=== PATIENT | male | born 1970 | race American Indian/Alaskan Native ===

== ENCOUNTER 2016-12-11 12:50 | Emergency (ER) | payer OTHER ==
[2016-12-11 12:55] VITALS: BMI 36.5
[2016-12-11 12:57] VITALS: BP 136/92; PULSE 81; RESP 20; TEMP 98.2; O2SAT 97
--- NOTE | 2016-12-11 13:44 | ED PDOC ---
HPI: General Adult Time Seen by Provider: 12/11/16 13:09 Chief Complaint (Nursing): Abdominal Pain Chief Complaint (Provider): abdominal pain History Per: Patient History/Exam Limitations: no limitations Additional Complaint(s): 46yo male comes to the ED complaining of abdominal pain since this waking up this morning. States sudden onset, non-radiating, in the middle of the abdomen. No nausea, vomit, urinary symptoms, diarrhea, constipation. No shoulder pain, back pain. No Hx hernia. States it became worse while lifting something at work. Last bowel movement was this morning. Pain is worse with movement. Past Medical History Reviewed: Historical Data, Nursing Documentation, Vital Signs Vital Signs: Last Vital Signs Temp 98.2 F 12/11/16 12:55 Pulse 81 12/11/16 12:55 Resp 20 12/11/16 12:55 BP 136/92 H 12/11/16 12:55 Pulse Ox 97 12/11/16 13:53 - Medical History PMH: HTN (no meds x years) Denies: Alzheimer's Disease, Anemia, Anxiety, Arthritis, Asthma, Bipolar Disorder, Bronchitis, COPD, Crohn's Disease, Dementia, Depression, Diverticulitis, Emphysema, Fractures, Gastritis, Gall Bladder Disease, HIV, Hyperthyroidism, Hypothyroidism, Kidney Stones, Migraine, Multiple Sclerosis, Osteoporosis, Pancreatitis, Paranoia, Parkinson's Disease, Pneumonia, Post Traumatic Stress Disorder, Pulmonary Embolism, Chronic Kidney Disease, Rheumatoid Arthritis, Schizophrenia, Seizures, Sickle Cell Disease, Sexually Transmitted Disease, Sleep Apnea, TIA - Surgical History Surgical History: No Surg Hx - Family History Family History: States: No Known Family Hx - Living Arrangements Living Arrangements: With Family - Social History Current smoker - smoking cessation education provided: No Alcohol: < 2 Drinks/Day - Home Medications Home Medications: Ambulatory Orders Medication Instructions Recorded Aspirin [Aspirin Chewable] 81 mg PO DAILY #0 chew 10/12/14 Atorvastatin [Lipitor] 10 mg PO HS #0 tab 10/12/14 Enalapril Maleate [Vasotec] 5 mg PO DAILY #0 tab 10/12/14 Amoxicillin/Clavulanate [Augmentin 1 tab PO BID #20 tab 10/28/15 875 MG-125 MG] Enalapril Maleate [Vasotec] 5 mg PO DAILY #5 tab 10/28/15 Naproxen [Naprosyn Tab] 500 mg PO BID PRN #20 tab 10/28/15 Amoxicillin/Potassium Clav 1 tab PO TID #30 tab 08/12/16 [Augmentin 500 mg-125 mg] amLODIPine [Norvasc] 5 mg PO DAILY #30 tab 08/12/16 - Allergies Allergies/Adverse Reactions: Allergies Allergy/AdvReac Type Severity Reaction Status Date / Time tomato AdvReac URTICARIA Verified 12/11/16 12:59 Review of Systems ROS Statement: Except As Marked, All Systems Reviewed And Found Negative Constitutional: Negative for: Fever Gastrointestinal: Positive for: Abdominal Pain. Negative for: Nausea, Vomiting , Diarrhea, Constipation Genitourinary Male: Negative for: Dysuria, Frequency Musculoskeletal: Negative for: Back Pain Physical Exam - Reviewed Nursing Documentation Reviewed: Yes Vital Signs Reviewed: Yes - Physical Exam Appears: Positive for: Well, Non-toxic, No Acute Distress Head Exam: Positive for: ATRAUMATIC, NORMAL INSPECTION, NORMOCEPHALIC Skin: Positive for: Warm, Dry Eye Exam: Positive for: EOMI, PERRL Cardiovascular/Chest: Positive for: Regular Rate, Rhythm Respiratory: Positive for: Normal Breath Sounds. Negative for: Rales, Rhonchi, Wheezing Gastrointestinal/Abdominal: Positive for: Bowel Sounds (decreased bowel sounds in all 4 quadrants. ), Soft, Tenderness (left periumbilical tenderness but no tenderness to percussion), Distended - Laboratory Results Result Diagrams: 12/11/16 14:10 12/11/16 14:10 - ECG O2 Sat by Pulse Oximetry: 97 (RA) Pulse Ox Interpretation: Normal - Progress Re-evaluation Time: 18:52 (no furhter pain/tenderness) Condition: Re-examined, Improved Medical Decision Making Medical Decision Makin: XR Obstructive Series, CT abd/pel w/ contrast, Labs, EKG ordered. Disposition - Clinical Impression Clinical Impression: Abdominal pain - Patient ED Disposition Is Patient to be Admitted: No Doctor Will See Patient In The: Office Counseled Patient/Family Regarding: Diagnosis - Disposition Referrals: Galen Araujo MD [Family Provider] - Disposition: Routine/Home Disposition Time: 18:51 Condition: IMPROVED Instructions: Acute Abdominal Pain (ED) Forms: [facility] ED School/Work Excuse - POA Present On Arrival: None Additional Comments - Additional Comments Additional Comments: Scribe Attestation: Documented by Niko Cao acting as a scribe for Polly Allen MD. Provider Scribe Attestation: All medical record entries made by the Scribe were at my direction and personally dictated by me. I have reviewed the chart and agree that the record accurately reflects my personal performance of the history, physical exam, medical decision making, and the department course for this patient. I have also personally directed, reviewed, and agree with the discharge instructions and disposition.
[2016-12-11 14:17] LABS: BASO % 0.4 % (0.0-2.0); EOS % 0.5 % (0.0-4.0); HEMATOCRIT 42.8 % (35.0-51.0); LYMPH % 27.6 % (20.0-40.0); MEAN CORPUSCULAR HEMOGLOBIN 33.1 pg (27.0-31.0); MEAN CORPUSCULAR HGB CONC 32.7 g/dL (33.0-37.0); MEAN PLATELET VOLUME 8.4 fl (7.2-11.7); MONO # 0.6 K/uL (0.0-0.8); MONO % 8.3 % (0.0-10.0); NEUT # 4.6 K/uL (1.8-7.0); NEUT % 63.2 % (50.0-75.0); NRBC % 0.1 % (0.0-0.0); RED CELL DISTRIBUTION WIDTH 14.5 % (11.5-14.5); WHITE BLOOD COUNT 7.3 K/uL (4.8-10.8)
[2016-12-11 14:25] LABS: RBC URINE 6 /hpf (0-3); URINE BACTERIA RARE (<OCC); URINE BILIRUBIN NEGATIVE (NEGATIVE); URINE BLOOD NEGATIVE (NEGATIVE); URINE COLOR YELLOW (YELLOW); URINE GLUCOSE (UA) NEG (Normal); URINE KETONE NEGATIVE (NEGATIVE); URINE LEUKOCYTE ESTERASE NEG Leu/uL (Negative); URINE PROTEIN 30 mg/dL (NEGATIVE); URINE UROBILINOGEN 0.2-1.0 mg/dL (0.2-1.0); WBC URINE 1 /hpf (0-5)
[2016-12-11 14:28] LABS: ALKALINE PHOSPHATASE 78 U/L (38-126); ALT/SGPT 32 U/L (21-72); AST/SGOT 32 U/L (17-59); BILIRUBIN,TOTAL 0.4 mg/dl (0.2-1.3); BLOOD UREA NITROGEN 13 mg/dl (9-20); CALCIUM 9.6 mg/dL (8.4-10.2); CARBON DIOXIDE 27 mmol/L (22-30); CHLORIDE 104 mmol/L (98-107); GFR AFRICAN-AMERICAN > 60; GLUCOSE,RANDOM 87 mg/dL (75-110); LIPASE 78 U/L (23-300); POTASSIUM 4.3 MMOL/L (3.6-5.0); SODIUM 141 mmol/l (132-148); TOTAL PROTEIN 8.9 G/DL (6.3-8.2)
--- NOTE | 2016-12-11 14:52 | RAD ---
PROCEDURE: Chest abdominal series dated 12/11/2016 HISTORY: periumbilical pain COMPARISON: Comparison made with prior chest radiograph dated 10/11/2014 TECHNIQUE: AP radiograph of the chest, with upright and supine radiographs of the abdomen. FINDINGS: CHEST: Heart appears mildly enlarged. Lung buck clear without focal consolidation or effusion. No apparent pneumothorax. Probable healed fracture deformity right clavicle. ABDOMEN AND PELVIS: No evidence of free intraperitoneal air seen under the diaphragmatic surfaces. Nonobstructive/nonspecific bowel gas pattern is present. IMPRESSION: Cardiomegaly. No evidence of acute mechanical bowel obstruction. No gross free intraperitoneal air. See above discussion for additional incidental findings.
[2016-12-11] MEDS ORDERED: Iohexol 240 (50 ml) ONE (15:08)
[2016-12-11] MEDS: Iohexol 240 (50 ml) PO ONE (15:16)
[2016-12-11] MEDS ORDERED: Sodium Chloride 0.9% 50 ML IV ONE (16:41)
[2016-12-11] MEDS ORDERED: Iohexol 300 100 ML IJ ONE (16:41)
--- NOTE | 2016-12-11 18:37 | CT ---
PROCEDURE: CT Abdomen and Pelvis with contrast HISTORY: periumbilical pain COMPARISON: None. TECHNIQUE: Contrast dose: 100 cc Visipaque 320. Radiation dose: Total exam DLP = 1178.99 mGy-cm. This CT exam was performed using one or more of the following dose reduction techniques: Automated exposure control, adjustment of the mA and/or kV according to patient size, and/or use of iterative reconstruction technique. FINDINGS: LOWER THORAX: Unremarkable. LIVER: Hepatic steatosis. No focal masses. No intrahepatic bile duct dilatation or perihepatic ascites. GALLBLADDER AND BILE DUCTS: Unremarkable. PANCREAS: Unremarkable. No gross lesion or ductal dilatation. SPLEEN: Unremarkable. ADRENALS: Unremarkable. No mass. KIDNEYS AND URETERS: Unremarkable. No hydronephrosis. No solid mass. VASCULATURE: Unremarkable. No aortic aneurysm. BOWEL: Unremarkable. No obstruction. No gross mural thickening. Diverticulosis without an acute inflammatory component or other associated pathologic process. APPENDIX: Normal appendix. PERITONEUM: Unremarkable. No free fluid. No free air. LYMPH NODES: Unremarkable. No enlarged lymph nodes. BLADDER: Unremarkable. REPRODUCTIVE: Unremarkable. BONES: No acute fracture. OTHER FINDINGS: None. IMPRESSION: No acute findings related to/accounting for the clinical presentation. Additional benign and/or incidental findings described above.
--- NOTE | 2016-12-13 18:58 | CARD ---
APPROVED REPORT EKG Measurement Heart [id number] <Conclusion> Normal sinus rhythm with sinus arrhythmia Nonspecific T wave abnormality Abnormal ECG
== END 2016-12-11 19:01 | disposition home or self-care (01) ==
LOC: H.ER 12:50
DX: R10.33 Periumbilical pain (principal); I10 Essential (primary) hypertension; Z79.82 Long term (current) use of aspirin

== ENCOUNTER 2018-02-10 21:09 | Observation (INO) | payer OTHER ==
[2018-02-10 21:10] VITALS: BMI 36.5
--- NOTE | 2018-02-10 21:39 | ED PDOC ---
HPI: Chest Pain Time Seen by Provider: 02/10/18 21:26 Chief Complaint (Nursing): Chest Pain Chief Complaint (Provider): chest pain History Per: Patient History/Exam Limitations: no limitations Onset/Duration Of Symptoms: Hrs (5) Current Symptoms Are (Timing): Still Present Additional Complaint(s): 48 y/o male history of hypertension (noncompliant) presents for evaluation of chest pain x 5 hours. Patient states symptoms started in left upper arm, then radiated to left jaw and to left side of chest. Associated shortness of breath. Denies fever, headache, dizziness, nausea/vomiting, palpitations, leg pain/swelling, recent travel. PMD: Dr. Galen Araujo Past Medical History Reviewed: Historical Data, Nursing Documentation, Vital Signs Vital Signs: Last Vital Signs Temp 98.2 F 02/10/18 21:15 Pulse 81 02/10/18 21:39 Resp 19 02/10/18 21:39 BP 143/78 02/10/18 21:39 Pulse Ox 96 02/10/18 21:40 - Medical History PMH: HTN (no meds x years) Denies: Alzheimer's Disease, Anemia, Anxiety, Arthritis, Asthma, Bipolar Disorder, Bronchitis, COPD, Crohn's Disease, Dementia, Depression, Diverticulitis, Emphysema, Fractures, Gastritis, Gall Bladder Disease, HIV, Hyperthyroidism, Hypothyroidism, Kidney Stones, Migraine, Multiple Sclerosis, Osteoporosis, Pancreatitis, Paranoia, Parkinson's Disease, Pneumonia, Post Traumatic Stress Disorder, Pulmonary Embolism, Chronic Kidney Disease, Rheumatoid Arthritis, Schizophrenia, Seizures, Sickle Cell Disease, Sexually Transmitted Disease, Sleep Apnea, TIA - Surgical History Surgical History: No Surg Hx - Family History Family History: States: Unknown Family Hx - Living Arrangements Living Arrangements: With Family - Social History Current smoker - smoking cessation education provided: No Alcohol: Occasional Drugs: Denies - Home Medications Home Medications: Ambulatory Orders Medication Instructions Recorded Aspirin [Aspirin Chewable] 81 mg PO DAILY #0 chew 10/12/14 Atorvastatin [Lipitor] 10 mg PO HS #0 tab 10/12/14 Enalapril Maleate [Vasotec] 5 mg PO DAILY #0 tab 10/12/14 Amoxicillin/Clavulanate [Augmentin 1 tab PO BID #20 tab 10/28/15 875 MG-125 MG] Enalapril Maleate [Vasotec] 5 mg PO DAILY #5 tab 10/28/15 Naproxen [Naprosyn Tab] 500 mg PO BID PRN #20 tab 10/28/15 Amoxicillin/Potassium Clav 1 tab PO TID #30 tab 08/12/16 [Augmentin 500 mg-125 mg] amLODIPine [Norvasc] 5 mg PO DAILY #30 tab 08/12/16 - Allergies Allergies/Adverse Reactions: Allergies Allergy/AdvReac Type Severity Reaction Status Date / Time tomato AdvReac URTICARIA Verified 12/11/16 12:59 Review of Systems ROS Statement: Except As Marked, All Systems Reviewed And Found Negative Cardiovascular: Positive for: Chest Pain Respiratory: Positive for: Shortness of Breath Physical Exam - Reviewed Nursing Documentation Reviewed: Yes Vital Signs Reviewed: Yes - Physical Exam Appears: Positive for: Well, Non-toxic, No Acute Distress Head Exam: Positive for: ATRAUMATIC, NORMAL INSPECTION, NORMOCEPHALIC Skin: Positive for: Normal Color Eye Exam: Positive for: Normal appearance ENT: Positive for: Normal ENT Inspection Cardiovascular/Chest: Positive for: Regular Rate, Rhythm Respiratory: Positive for: Normal Breath Sounds Gastrointestinal/Abdominal: Positive for: Normal Exam Back: Positive for: Normal Inspection Extremity: Positive for: Normal ROM Neurologic/Psych: Positive for: Alert, Oriented (x3) - Laboratory Results Result Diagrams: 02/10/18 22:10 02/10/18 22:10 - ECG ECG: Positive for: Viewed By Me (reviewed by ED attending) ECG Rhythm: Positive for: Sinus Rhythm O2 Sat by Pulse Oximetry: 96 - Radiology X-Ray: Viewed By Me X-Ray Interpretation: No Acute Disease - Progress ED Course And Treament: labs, ekg, chest xray Case discussed with Dr. Araujo for placement in telemetry obs for chest pain to r/out ACS ASA dose ordered Disposition - Clinical Impression Clinical Impression: Chest pain - Disposition Disposition Time: 23:13 Condition: FAIR
[2018-02-10 22:24] LABS: BASO # 0.1 K/uL (0.0-0.2); EOS % 0.5 % (0.0-4.0); HEMOGLOBIN 13.3 g/dL (12.0-18.0); LYMPH # 2.3 K/uL (1.0-4.3); MEAN CELL VOLUME 100.9 fl (80.0-94.0); MEAN CORPUSCULAR HEMOGLOBIN 33.7 pg (27.0-31.0); MEAN CORPUSCULAR HGB CONC 33.4 g/dL (33.0-37.0); MEAN PLATELET VOLUME 8.4 fl (7.2-11.7); MONO # 0.6 K/uL (0.0-0.8); MONO % 7.2 % (0.0-10.0); NEUT # 5.4 K/uL (1.8-7.0); NEUT % 64.3 % (50.0-75.0); RBC 3.93 Mil/uL (4.40-5.90); RED CELL DISTRIBUTION WIDTH 14.3 % (11.5-14.5); WHITE BLOOD COUNT 8.5 K/uL (4.8-10.8)
[2018-02-10 22:34] LABS: CALCIUM 9.6 mg/dL (8.4-10.2); GFR AFRICAN-AMERICAN > 60; GFR NON-AFRICAN AMERICAN > 60
[2018-02-10 22:42] LABS: ALBUMIN 4.2 g/dL (3.5-5.0); ALT/SGPT 22 U/L (21-72); AST/SGOT 41 U/L (17-59); BLOOD UREA NITROGEN 11 mg/dl (9-20)
[2018-02-10 22:46] LABS: B-TYPE NATRIURETIC PEPTIDE 28.9 pg/ml (0-450)
[2018-02-11 06:20] LABS: HDL CHOLESTEROL 36 MG/DL (30-70)
[2018-02-11 06:31] LABS: LDL CHOLESTEROL 131 mg/dL (0-129)
[2018-02-11 07:51] VITALS: RESP 16
[2018-02-11] MEDS ORDERED: Enoxaparin 40 mg Syringe SC SCH (09:00)
--- NOTE | 2018-02-11 09:05 | RAD ---
Date of service: 02/10/2018 HISTORY: chest pain COMPARISON: Portable chest 10/11/2014. TECHNIQUE: Chest PA and lateral FINDINGS: LUNGS: No active pulmonary disease. PLEURA: No significant pleural effusion identified. No pneumothorax apparent. CARDIOVASCULAR: Normal. OSSEOUS STRUCTURES: No significant abnormalities. VISUALIZED UPPER ABDOMEN: Normal. OTHER FINDINGS: None. IMPRESSION: No interval acute cardiopulmonary disease appreciated.
--- NOTE | 2018-02-11 10:24 | CP.PCM.HP ---
History of Present Illness - History of Present Illness History of Present Illness: 48 YR OLD MALE ADMITTED VIA THE ER BECAUSE OF CHEST PAINS RADIATING TO THE L ARM X SEVERAL DAYS[WORSE ON THE DAY OF ADMISSION].PAIN RESOLVED WHILE IN THE ER. THE PT HAS A HISTORY OF HYPERTENSION AND HAS NOT TAKEN HIS BP MEDS FOR YRS.HE HAS ALSO NOT KEPT HIS OFFICE APPOINTMENTS X YRS. FAMILY HX-BOTH PARENTS ARE HYPERTENSIVE Present on Admission - Present on Admission Any Indicators Present on Admission: Yes Past Patient History - Infectious Disease Hx of Infectious Diseases: None - Past Social History Alcohol: Occasional Drugs: Denies - CARDIAC Hx Hypertension: Yes (no meds x years) - PULMONARY Hx Asthma: No Hx Bronchitis: No Hx Chronic Obstructive Pulmonary Disease (COPD): No Hx Emphysema: No Hx Pneumonia: No Hx Pulmonary Embolism: No Hx Sleep Apnea: No - NEUROLOGICAL Hx Alzheimer's Disease: No Hx Dementia: No Hx Migraine: No Hx Multiple Sclerosis: No Hx Parkinson's Disease: No Hx Seizures: No Hx Transient Ischemic Attacks (TIA): No - HEENT Hx HEENT Problems: No Hx Blind: No Hx Cataracts: No Hx Deafness: No Hx Difficulty Chewing: No Hx Epistaxis: No Hx Glaucoma: No Hx Macular Degeneration: No - RENAL Hx Chronic Kidney Disease: No Hx Kidney Stones: No - ENDOCRINE/METABOLIC Hx Hyperthyroidism: No Hx Hypothyroidism: No - HEMATOLOGICAL/ONCOLOGICAL Hx Anemia: No Hx Human Immunodeficiency Virus (HIV): No Hx Sickle Cell Disease: No - INTEGUMENTARY Hx Dermatological Problems: No Hx Basil Cell: No Hx Lee: No Hx Cellulitis: No Hx Eczema: No Hx Melanoma: No Hx Psoriasis: No Hx Squamous Cell: No - MUSCULOSKELETAL/RHEUMATOLOGICAL Hx Arthritis: No Hx Fractures: No Hx Osteoporosis: No Hx Rheumatoid Arthritis: No - GASTROINTESTINAL Hx Crohn's Disease: No Hx Diverticulitis: No Hx Gall Bladder Disease: No Hx Gastritis: No Hx Pancreatitis: No - GENITOURINARY/GYNECOLOGICAL Hx Sexually Transmitted Disorders: No - PSYCHIATRIC Hx Anxiety: No Hx Bipolar Disorder: No Hx Depression: No Hx Paranoia: No Hx Post Traumatic Stress Disorder: No Hx Schizophrenia: No - SURGICAL HISTORY Hx Surgeries: No - ANESTHESIA Hx Anesthesia: No Meds Allergies/Adverse Reactions: Allergies Allergy/AdvReac Type Severity Reaction Status Date / Time tomato AdvReac URTICARIA Verified 12/11/16 12:59 Physical Exam - Constitutional Appears: Well - Head Exam Head Exam: ATRAUMATIC, NORMAL INSPECTION, NORMOCEPHALIC - Eye Exam Eye Exam: EOMI, Normal appearance, PERRL Pupil Exam: NORMAL ACCOMODATION, PERRL - ENT Exam ENT Exam: Mucous Membranes Moist, Normal Exam - Neck Exam Neck exam: Positive for: Normal Inspection - Respiratory Exam Respiratory Exam: Clear to Auscultation Bilateral, NORMAL BREATHING PATTERN - Cardiovascular Exam Cardiovascular Exam: REGULAR RHYTHM - GI/Abdominal Exam GI & Abdominal Exam: Normal Bowel Sounds, Soft. absent: Tenderness - Rectal Exam Rectal Exam: NORMAL INSPECTION - Extremities Exam Extremities exam: Positive for: normal inspection - Back Exam Back exam: NORMAL INSPECTION - Neurological Exam Neurological exam: Alert, CN II-XII Intact, Normal Gait, Oriented x3, Reflexes Normal - Psychiatric Exam Psychiatric exam: Normal Affect, Normal Mood - Skin Skin Exam: Dry, Intact, Normal Color, Warm Results - Vital Signs Recent Vital Signs: Last Vital Signs Temp 97.8 F 02/11/18 05:25 Pulse 72 02/11/18 09:00 Resp 16 02/11/18 07:51 BP 134/78 02/11/18 09:00 Pulse Ox 98 02/11/18 07:51 - Labs Result Diagrams: 02/10/18 22:10 02/10/18 22:10 Labs: Laboratory Results - last 24 hr 02/10/18 02/10/18 02/11/18 22:10 22:10 05:30 WBC 8.5 RBC 3.93 L Hgb 13.3 Hct 39.7 MCV 100.9 H MCH 33.7 H MCHC 33.4 RDW 14.3 Plt Count 259 MPV 8.4 Neut % (Auto) 64.3 Lymph % (Auto) 27.0 Miner % (Auto) 7.2 Eos % (Auto) 0.5 Baso % (Auto) 1.0 Neut # (Auto) 5.4 Lymph # (Auto) 2.3 Miner # (Auto) 0.6 Eos # (Auto) 0.0 Baso # (Auto) 0.1 Sodium 142 Potassium 4.4 Chloride 103 Carbon Dioxide 29 Anion Gap 14 BUN 11 Creatinine 0.9 Est GFR ( Amer) > 60 Est GFR (Non-Af Amer) > 60 Random Glucose 91 Calcium 9.6 Total Bilirubin 0.8 AST 41 ALT 22 Alkaline Phosphatase 77 Troponin I < 0.0120 < 0.0120 NT-Pro-B Natriuret Pep 28.9 Total Protein 8.6 H Albumin 4.2 Globulin 4.4 H Albumin/Globulin Ratio 1.0 Triglycerides 121 D Cholesterol 207 H LDL Cholesterol Direct 131 H HDL Cholesterol 36 Assessment & Plan - Assessment and Plan (Free Text) Assessment: CHEST PAIN UNCONTROLLED HYPERTENSION NON-COMPLIANCE TO MEDS AND DIET HYPERLIPIDEMIA Plan: CLEARED FOR DISCHARGE BY [facility]--DR WONG PT TO FOLLOW UP WITH DR PUENTE OUT PT IN 1 WEEK FOR FURTHER WORKUP COMPLIANCE ADVISED - Date & Time Date: 02/11/18 Time: 10:27
--- NOTE | 2018-02-11 10:29 | CP.PCM.DIS ---
Provider - Provider Date of Admission: 02/10/18 23:07 Attending physician: Galen Puente MD Time Spent in preparation of Discharge (in minutes): 30 Diagnosis - Discharge Diagnosis (1) Non-compliance Status: Acute (2) Hyperlipidemia Status: Acute (3) Chest pain Status: Acute (4) Hypertension Status: Acute Hospital Course - Lab Results Lab Results: Most Recent Lab Values WBC 8.5 K/uL (4.8-10.8) 02/10/18 22:10 RBC 3.93 Mil/uL (4.40-5.90) L 02/10/18 22:10 Hgb 13.3 g/dL (12.0-18.0) 02/10/18 22:10 Hct 39.7 % (35.0-51.0) 02/10/18 22:10 MCV 100.9 fl (80.0-94.0) H 02/10/18 22:10 MCH 33.7 pg (27.0-31.0) H 02/10/18 22:10 MCHC 33.4 g/dL (33.0-37.0) 02/10/18 22:10 RDW 14.3 % (11.5-14.5) 02/10/18 22:10 Plt Count 259 K/uL (130-400) 02/10/18 22:10 MPV 8.4 fl (7.2-11.7) 02/10/18 22:10 Neut % (Auto) 64.3 % (50.0-75.0) 02/10/18 22:10 Lymph % (Auto) 27.0 % (20.0-40.0) 02/10/18 22:10 Hamblen % (Auto) 7.2 % (0.0-10.0) 02/10/18 22:10 Eos % (Auto) 0.5 % (0.0-4.0) 02/10/18 22:10 Baso % (Auto) 1.0 % (0.0-2.0) 02/10/18 22:10 Neut # (Auto) 5.4 K/uL (1.8-7.0) 02/10/18 22:10 Lymph # (Auto) 2.3 K/uL (1.0-4.3) 02/10/18 22:10 Hamblen # (Auto) 0.6 K/uL (0.0-0.8) 02/10/18 22:10 Eos # (Auto) 0.0 K/uL (0.0-0.7) 02/10/18 22:10 Baso # (Auto) 0.1 K/uL (0.0-0.2) 02/10/18 22:10 Sodium 142 mmol/l (132-148) 02/10/18 22:10 Potassium 4.4 MMOL/L (3.6-5.0) 02/10/18 22:10 Chloride 103 mmol/L (98-107) 02/10/18 22:10 Carbon Dioxide 29 mmol/L (22-30) 02/10/18 22:10 Anion Gap 14 (10-20) 02/10/18 22:10 BUN 11 mg/dl (9-20) 02/10/18 22:10 Creatinine 0.9 mg/dl (0.8-1.5) 02/10/18 22:10 Est GFR ( Amer) > 60 02/10/18 22:10 Est GFR (Non-Af Amer) > 60 02/10/18 22:10 Random Glucose 91 mg/dL (75-110) 02/10/18 22:10 Calcium 9.6 mg/dL (8.4-10.2) 02/10/18 22:10 Total Bilirubin 0.8 mg/dl (0.2-1.3) 02/10/18 22:10 AST 41 U/L (17-59) 02/10/18 22:10 ALT 22 U/L (21-72) 02/10/18 22:10 Alkaline Phosphatase 77 U/L (38-126) 02/10/18 22:10 Troponin I < 0.0120 ng/mL (0.00-0.120) 02/11/18 05:30 NT-Pro-B Natriuret Pep 28.9 pg/ml (0-450) 02/10/18 22:10 Total Protein 8.6 G/DL (6.3-8.2) H 02/10/18 22:10 Albumin 4.2 g/dL (3.5-5.0) 02/10/18 22:10 Globulin 4.4 gm/dL (2.2-3.9) H 02/10/18 22:10 Albumin/Globulin Ratio 1.0 (1.0-2.1) 02/10/18 22:10 Triglycerides 121 mg/DL (0-149) D 02/11/18 05:30 Cholesterol 207 mg/dL (0-199) H 02/11/18 05:30 LDL Cholesterol Direct 131 mg/dL (0-129) H 02/11/18 05:30 HDL Cholesterol 36 MG/DL (30-70) 02/11/18 05:30 - Hospital Course Hospital Course: CHEST PAIN RESOLVED CARDIAC ENZYMES NEGATIVE EKG-RSR CLEARED FOR DISCHARGE BY CARDIOLOGY Discharge Exam - Head Exam Head Exam: ATRAUMATIC, NORMAL INSPECTION, NORMOCEPHALIC - Eye Exam Eye Exam: EOMI, Normal appearance, PERRL Pupil Exam: NORMAL ACCOMODATION, PERRL - GI/Abdominal Exam GI & Abdominal Exam: Normal Bowel Sounds - Rectal Exam Rectal Exam: NORMAL INSPECTION - Neurological Exam Neurological exam: Alert, CN II-XII Intact, Normal Gait, Oriented x3, Reflexes Normal - Psychiatric Exam Psychiatric exam: Normal Affect, Normal Mood - Skin Skin Exam: Dry, Intact, Normal Color, Warm Discharge Plan - Follow Up Plan Condition: FAIR Disposition: HOME/ ROUTINE Patient education suggested?: Yes Additional Instructions: FOLLOW UP WITH DR PUENTE IN 1 WEEK
--- NOTE | 2018-02-11 10:35 | CP.PCM.CON ---
History of Present Illness - History of Present Illness History of Present Illness: The patient was examined at Dr. Araujo's request. This 48-year-old man, a hypertensive for over 10 years who admits to being markedly noncompliant as far as dietary restrictions or taking of antihypertensives is concerned came to the emergency room last night after experiencing left pectoral ache which also spread to his left shoulder and left arm. 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 This was not accompanied by any nausea perspiration or vomiting. The patient is able to walk 6-7 blocks or climb couple of flights of stairs without getting any chest pain. He is not a smoker and denies any history of diabetes or prior myocardial infarction. The patient does admit to poor salt restriction and has visited emergency room in the past with uncontrolled blood pressure. Physical examination shows a young markedly overweight -Italian male who is quite alert awake and coherent. He was afebrile and was breathing comfortably at 14 breaths per minute with a heart rate of 68 bpm regular and a blood pressure of 138/74 mmHg. His jugular venous pressure was not elevated and there was no edema over his lower extremity. His pedal pulses were well felt. There were no carotid bruits. The apex was not palpable. The first and second heart sounds were normal. There was no murmur or gallop there were no rales. His abdomen was soft liver and spleen are not palpable. There was no tenderness in the left pectoral or shoulder area. His electrocardiogram showed sinus rhythm with mild flattening of ST segments and T waves in leads V5 and V6 as well as leads 1 and aVL. This pattern was seen on earlier electrocardiograms recorded at this hospital as far back as 2013. No Q waves were detected on his cardiogram. His cardiogram at admission was done when the patient was still experiencing his chest and left arm pain. His troponin levels 2, 8 hours apart were normal. Rest of his labs were noted. Impression :Atypical chest pain with no evidence of acute coronary syndrome. Hypertension with poor medical compliance. Chronic exogenous obesity. I have discussed his case with Dr. Araujo. The patient may be allowed to return home to be managed as an outpatient. I have stressed to the patient the importance of compliance with his medical management and lifestyle modifications recommended by his primary care physician. Past Patient History - Infectious Disease Hx of Infectious Diseases: None - Past Social History Alcohol: Occasional Drugs: Denies - CARDIAC Hx Hypertension: Yes (no meds x years) - PULMONARY Hx Asthma: No Hx Bronchitis: No Hx Chronic Obstructive Pulmonary Disease (COPD): No Hx Emphysema: No Hx Pneumonia: No Hx Pulmonary Embolism: No Hx Sleep Apnea: No - NEUROLOGICAL Hx Alzheimer's Disease: No Hx Dementia: No Hx Migraine: No Hx Multiple Sclerosis: No Hx Parkinson's Disease: No Hx Seizures: No Hx Transient Ischemic Attacks (TIA): No - HEENT Hx HEENT Problems: No Hx Blind: No Hx Cataracts: No Hx Deafness: No Hx Difficulty Chewing: No Hx Epistaxis: No Hx Glaucoma: No Hx Macular Degeneration: No - RENAL Hx Chronic Kidney Disease: No Hx Kidney Stones: No - ENDOCRINE/METABOLIC Hx Hyperthyroidism: No Hx Hypothyroidism: No - HEMATOLOGICAL/ONCOLOGICAL Hx Anemia: No Hx Human Immunodeficiency Virus (HIV): No Hx Sickle Cell Disease: No - INTEGUMENTARY Hx Dermatological Problems: No Hx Basil Cell: No Hx Lee: No Hx Cellulitis: No Hx Eczema: No Hx Melanoma: No Hx Psoriasis: No Hx Squamous Cell: No - MUSCULOSKELETAL/RHEUMATOLOGICAL Hx Arthritis: No Hx Fractures: No Hx Osteoporosis: No Hx Rheumatoid Arthritis: No - GASTROINTESTINAL Hx Crohn's Disease: No Hx Diverticulitis: No Hx Gall Bladder Disease: No Hx Gastritis: No Hx Pancreatitis: No - GENITOURINARY/GYNECOLOGICAL Hx Sexually Transmitted Disorders: No - PSYCHIATRIC Hx Anxiety: No Hx Bipolar Disorder: No Hx Depression: No Hx Paranoia: No Hx Post Traumatic Stress Disorder: No Hx Schizophrenia: No - SURGICAL HISTORY Hx Surgeries: No - ANESTHESIA Hx Anesthesia: No Meds Allergies/Adverse Reactions: Allergies Allergy/AdvReac Type Severity Reaction Status Date / Time tomato AdvReac URTICARIA Verified 12/11/16 12:59 - Medications Medications: Current Medications Aspirin (Ecotrin) 81 mg PO DAILY [facility] Last Admin: 02/11/18 09:00 Dose: 81 mg Enoxaparin Sodium (Lovenox) 40 mg SC DAILY [facility] PRN Reason: Protocol Last Admin: 02/11/18 09:01 Dose: 40 mg Metoprolol Tartrate (Lopressor) 50 mg PO DAILY [facility] Last Admin: 02/11/18 09:00 Dose: 50 mg Results - Vital Signs Recent Vital Signs: Last Vital Signs Temp 97.8 F 02/11/18 05:25 Pulse 72 02/11/18 09:00 Resp 16 02/11/18 07:51 BP 134/78 02/11/18 09:00 Pulse Ox 98 02/11/18 07:51 - Labs Result Diagrams: 02/10/18 22:10 02/10/18 22:10 Labs: Laboratory Results - last 24 hr 02/10/18 02/10/18 02/11/18 22:10 22:10 05:30 WBC 8.5 RBC 3.93 L Hgb 13.3 Hct 39.7 MCV 100.9 H MCH 33.7 H MCHC 33.4 RDW 14.3 Plt Count 259 MPV 8.4 Neut % (Auto) 64.3 Lymph % (Auto) 27.0 [place] % (Auto) 7.2 Eos % (Auto) 0.5 Baso % (Auto) 1.0 Neut # (Auto) 5.4 Lymph # (Auto) 2.3 [place] # (Auto) 0.6 Eos # (Auto) 0.0 Baso # (Auto) 0.1 Sodium 142 Potassium 4.4 Chloride 103 Carbon Dioxide 29 Anion Gap 14 BUN 11 Creatinine 0.9 Est GFR ( Amer) > 60 Est GFR (Non-Af Amer) > 60 Random Glucose 91 Calcium 9.6 Total Bilirubin 0.8 AST 41 ALT 22 Alkaline Phosphatase 77 Troponin I < 0.0120 < 0.0120 NT-Pro-B Natriuret Pep 28.9 Total Protein 8.6 H Albumin 4.2 Globulin 4.4 H Albumin/Globulin Ratio 1.0 Triglycerides 121 D Cholesterol 207 H LDL Cholesterol Direct 131 H HDL Cholesterol 36
[2018-02-11 10:57] VITALS: BP 125/80; PULSE 75; TEMP 98.1; O2SAT 100
--- NOTE | 2018-02-11 13:25 | CARD ---
APPROVED REPORT Date of service: 02/10/2018 EKG Measurement Heart [id number] <Conclusion> Normal sinus rhythm Normal ECG
--- NOTE | 2018-02-11 15:25 | CARD ---
APPROVED REPORT Date of service: 02/11/2018 EKG Measurement Heart [id number] <Conclusion> Normal sinus rhythm Nonspecific T wave abnormality Abnormal ECG
== END 2018-02-11 11:08 | disposition home or self-care (01) ==
LOC: H.ER 21:09 → H.ERHOLD 23:07
PROVIDERS: ADMIT Internal Medicine Pulmonary Disease; ATTEND Internal Medicine Pulmonary Disease
DX: R07.89 Other chest pain (principal); I10 Essential (primary) hypertension; E78.5 Hyperlipidemia, unspecified; E66.09 Other obesity due to excess calories; Z68.34 Body mass index [BMI] 34.0-34.9, adult; Z91.14 Patient's other noncompliance with medication regimen; Z91.19 Patient's noncompliance with other medical treatment and regimen; Z79.899 Other long term (current) drug therapy
CPT/HCPCS: 71046; 80053; 80061; 83880; 84484; 85025; 93005; 96372; 99285; G0378; J1650